=== PATIENT | female | born 1995 | race Two or more races ===

== ENCOUNTER 2017-01-06 22:04 | Emergency (ER) | payer BC ==
--- NOTE | 2017-01-06 23:37 | EDM.PDOC ---
ED HPI GENERAL MEDICAL PROBLEM - General Chief Complaint: Abdominal Pain Stated Complaint: ABDOMINAL PAIN Time Seen by Provider: 01/06/17 22:11 Source of Information: Reports: Patient, Family (Mother), RN Notes Reviewed History Limitations: Reports: No Limitations - History of Present Illness INITIAL COMMENTS - FREE TEXT/NARRATIVE: The patient states that she developed crampy suprapubic pain Wednesday night, 01/04. It has been waxing and waning. She feels better if she takes ibuprofen, and going to the bathroom. Nothing seems to make it worse. She reports urinary frequency, but denies dysuria and urgency. No recent fever, nausea, vomiting, constipation, or diarrhea. No prior similar symptoms. The patient is 1. Her LMP was 12/29/2016. The patient does not have a PCP. 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 Lower Abdomen Pain Score (Numeric/FACES): 8 - Related Data Allergies Allergy/AdvReac Type Severity Reaction Status Date / Time No Known Allergies Allergy Verified 01/06/17 22:12 Home Meds: Home Meds Control Patch 1 applicful TOP WEEKLY 01/06/17 [History] Cabergoline 0.5 mg PO WEEKLY 01/06/17 [History] Ibuprofen 600 mg PO Q8HR PRN 01/06/17 [History] Past Medical History Endocrine/Metabolic History: Reports: Other (See Below) (Pituitary prolactinoma) - Past Surgical History HEENT Surgical History: Reports: Oral Surgery ([place] teeth extraction) Social & Family History - Tobacco Use Smoking Status *Q: Never Smoker - Caffeine Use Caffeine Use: Reports: Other Other Caffeine Use: Pre-workout - Alcohol Use Alcohol Use History: Yes Alcohol Use Frequency: Socially - Recreational Drug Use Recreational Drug Use: No - Living Situation & Occupation Living situation: Reports: Single, with Family (Mother) Occupation: Unemployed ED ROS GENERAL - Review of Systems Review Of Systems: See Below Constitutional: Reports: No Symptoms HEENT: Reports: No Symptoms Respiratory: Reports: No Symptoms Cardiovascular: Reports: No Symptoms Endocrine: Reports: No Symptoms GI/Abdominal: Reports: No Symptoms : Reports: No Symptoms Musculoskeletal: Reports: No Symptoms Skin: Reports: No Symptoms Neurological: Reports: No Symptoms Psychiatric: Reports: No Symptoms Hematologic/Lymphatic: Reports: No Symptoms Immunologic: Reports: No Symptoms ED EXAM, GI/ABD - Physical Exam Exam: See Below Exam Limited By: No Limitations General Appearance: Alert, WD/WN, No Apparent Distress Eyes: Bilateral: Normal Appearance, EOMI Ears: Normal External Exam, Hearing Grossly Normal Nose: Normal Inspection, No Blood Throat/Mouth: Normal Inspection, Normal Lips, Normal Voice, No Airway Compromise Head: Atraumatic, Normocephalic Neck: Normal Inspection, Full Range of Motion Respiratory/Chest: No Respiratory Distress, Lungs Clear, Normal Breath Sounds, No Accessory Muscle Use Cardiovascular: Normal Peripheral Pulses, Regular Rate, Rhythm, No Gallop, No JVD, No Murmur, No Rub GI/Abdominal Exam: Normal Bowel Sounds, Soft, No Organomegaly, No Distention, No Abnormal Bruit, No Mass, Pelvis Stable, Tender (Mild, suprapubic only. Nontender elsewhere.) (Female) Exam: Deferred Rectal (Female) Exam: Deferred Back Exam: Normal Inspection, Full Range of Motion. No: CVA Tenderness (L), CVA Tenderness (R) Extremities: Normal Inspection, Normal Range of Motion, No Pedal Edema, Normal Capillary Refill Neurological: Alert, Oriented, Normal Cognition, No Motor/Sensory Deficits Psychiatric: Normal Affect Skin Exam: Warm, Dry, Intact, Normal Color, No Rash Course - Vital Signs Last Recorded V/S: Last Vital Signs Temp 37.1 C 01/06/17 22:16 Pulse 75 01/06/17 22:16 Resp 16 01/06/17 22:16 BP 114/66 01/06/17 22:16 Pulse Ox 99 01/06/17 22:16 - Orders/Labs/Meds Labs: Laboratory Tests 01/06/17 01/06/17 Range/Units 22:30 22:30 Urine Color Yellow (Yellow) Urine Appearance Clear (Clear) Urine pH 6.5 (5.0-8.0) Ur Specific [place] 1.025 (1.005-1.030) Urine Protein Negative (Negative) Urine Glucose (UA) Negative (Negative) Urine Ketones Trace H (Negative) Urine Occult Blood Trace-intact H (Negative) Urine Nitrite Negative (Negative) Urine Bilirubin Negative (Negative) Urine Urobilinogen 1.0 (0.2-1.0) Ur Leukocyte Esterase Negative (Negative) Urine RBC 0-5 (0-5) /hpf Urine WBC 0-5 (0-5) /hpf Ur Epithelial Cells 0-5 (0-5) /hpf Urine Bacteria Rare (FEW) /hpf Urine Mucus Moderate H (FEW) /hpf Urine HCG, Qual Negative (NEGATIVE) - Re-Assessments/Exams Free Text/Narrative Re-Assessment/Exam: 01/06/17 23:33 Urinalysis and urine test results discussed with the patient and her mother. The patient's urinalysis appears to be unremarkable, not consistent with a UTI, and therefore does not explain the cause of the patient's suprapubic pain and tenderness. I offered to perform additional tests, including blood work and a CT scan of the abdomen and pelvis, however, the patient declined. She opted instead to follow-up in the clinic tomorrow where a MRI of the abdomen and pelvis may be an option. Departure - Departure Time of Disposition: 23:34 Disposition: Home, Self-Care 01 Condition: Good Clinical Impression: Abdominal pain of unknown etiology - Discharge Information Instructions: Abdominal Pain, Adult, [id number] Referrals: PCP,None [Primary Care Provider] - Orlando Stout [Physician] - Forms: ED Department Discharge Additional Instructions: You were seen in the emergency room for lower central abdominal pain and the feeling of needing to urinate frequently. Workup in the ER included a urinalysis and a urine test. Both were normal - you do not have a urinary tract infection, and you are not . The cause of your symptoms is not known. Additional workup in the ER, including blood work and a CT scan of your abdomen and pelvis, was offered, but declined. Follow-up with either Dr. Stout or Dr. Cruz in the clinic tomorrow, , 01/07/2017, for further evaluation. If any other problems, please do not hesitate to return to the ER.
== END 2017-01-06 23:43 | disposition home or self-care (01) ==
LOC: JD.ED 22:04
DX: R10.30 Lower abdominal pain, unspecified (principal)
CPT/HCPCS: 81001; 81025; 99282; 99284